=== PATIENT | male | born 1965 | race Two or more races ===

== ENCOUNTER 2019-08-07 20:41 | Emergency (ER) | payer OTHER ==
[~2019-08-07] VITALS: Ht 170.2 cm; Wt 68.0 kg
[2019-08-07 20:52] VITALS: BP 152/87
[2019-08-07] MEDS ORDERED: Tetanus/Diptheria/Pertussis IM ONE (21:00)
--- NOTE | 2019-08-07 21:31 | Emergency Room Report ---
History of Present Illness General Chief Complaint: Multiple Trauma/Fall Source: Patient Present Illness HPI This patient is intoxicated. He has a history of alcohol abuse. His states that he drank a significant amount of hard liquor. He fell and hit his face. There was no loss of consciousness. Patient himself has no specific complaints. He denies chest pain or shortness of breath. He denies cough or congestion. He denies fever chills. He denies neck pain. He has no other complaints. Allergies: Coded Allergies: No Known Allergies (Unverified , 08/07/19) COVID-19 Screening Contact w/high risk pt: No Recent Travel to affected area: No Experienced COVID-19 symptoms?: No Patient History Past Medical History: see triage record, DM Social History: Reports: alcohol use; Denies: smoking, drug use Reviewed Nursing Documentation: PMH: Agreed; PSxH: Agreed Nursing Documentation-PMH Hx Diabetes: Yes Review of Systems All Other Systems: negative except mentioned in HPI Physical Exam Vital Signs Date Time Temp Pulse Resp B/P (MAP) Pulse Ox O2 Delivery O2 Flow Rate FiO2 08/07/19 20:42 98.8 123 18 152/87 (108) 97 Room Air Sp02 EP Interpretation: reviewed, normal General Appearance: no apparent distress, alert, GCS 15, non-toxic, other - intoxicated Head: normocephalic, other - Stellate shaped superficial laceration over the bridge of the nose 1cm. Eyes: bilateral eye normal inspection, bilateral eye PERRL ENT: hearing grossly normal, normal pharynx, no angioedema, normal voice Neck: full range of motion, supple/symm/no masses Respiratory: chest non-tender, lungs clear, normal breath sounds, no respiratory distress, no retraction, no accessory muscle use, speaking full sentences Cardiovascular #1: regular rate, rhythm, no edema Gastrointestinal: normal bowel sounds, non tender, soft, non-distended, no guarding, no rebound Rectal: deferred Musculoskeletal: normal inspection, back normal, normal range of motion, non- tender Neurologic: alert, motor strength/tone normal, oriented x3, sensory intact, responsive, speech normal Psychiatric: memory normal, mood/affect normal, no suicidal/homicidal ideation Skin: no rash, other - See above in ENT exam Procedures Laceration/Wound Repair Laceration/Wound Repair : Consent: Verbal Wound Location: face Wound's Depth, Shape: superficial Wound Length (cm): 1 Wound Repaired With: Dermabond Patient Tolerated: Well Complications: None Medical Decision Making Diagnostic Impression: Primary Impression: Alcohol intoxication Additional Impressions: Closed head injury Facial laceration Nasal bone fracture Hyperglycemia Poorly controlled diabetes mellitus ER Course This patient presents with acute alcoholic intoxication. The patient's laboratory workup was noncontributory other than an elevated EtOH and transaminitis and elevated blood sugar consistent with medication noncompliance. The patient was given IV fluids and oral metformin. The patient did have a facial laceration that was repaired by myself with Dermabond. The patient underwent CT of the head and face which showed only a minimally displaced nasal bone fracture. The patient was allowed to sober up in the emergency department and was able to ambulate and articulate desire to go home. The patient was clinically sober at the time of discharge. No acute emergency medical condition is identified. The patient was educated on the dangers of alcohol intoxication and abuse. The patient was given a list of the local rehabilitation clinics. Laboratory Tests Test 08/07/19 21:25 White Blood Count 8.2 K/UL (4.8-10.8) Red Blood Count 4.12 M/UL (4.70-6.10) L Hemoglobin 12.9 G/DL (14.2-18.0) L Hematocrit 37.9 % (42.0-52.0) L Mean Corpuscular Volume 92 FL (80-99) Mean Corpuscular Hemoglobin 31.4 PG (27.0-31.0) H Mean Corpuscular Hemoglobin Concent 34.1 G/DL (32.0-36.0) Red Cell Distribution Width 11.6 % (11.6-14.8) Platelet Count 246 K/UL (150-450) Mean Platelet Volume 7.9 FL (6.5-10.1) Neutrophils (%) (Auto) 57.9 % (45.0-75.0) Lymphocytes (%) (Auto) 34.9 % (20.0-45.0) Monocytes (%) (Auto) 5.2 % (1.0-10.0) Eosinophils (%) (Auto) 0.8 % (0.0-3.0) Basophils (%) (Auto) 1.1 % (0.0-2.0) Prothrombin Time 9.7 SEC (9.30-11.50) Prothrombin Time INR 0.9 (0.9-1.1) Activated Partial Thromboplast Time 25 SEC (23-33) Sodium Level 132 MMOL/L (136-145) L Potassium Level 3.4 MMOL/L (3.5-5.1) L Chloride Level 91 MMOL/L (98-107) L Carbon Dioxide Level 25 MMOL/L (21-32) Anion Gap 16 mmol/L (5-15) H Blood Urea Nitrogen 17 mg/dL (7-18) Creatinine 1.3 MG/DL (0.55-1.30) Estimated Glomerular Filtration Rate 57.3 mL/min (>60) Glucose Level 486 MG/DL (74-106) H Calcium Level 9.0 MG/DL (8.5-10.1) Total Bilirubin Pending Aspartate Amino Transferase (AST) Pending Alanine Aminotransferase (ALT) Pending Alkaline Phosphatase Pending Total Protein Pending Albumin Pending Globulin Pending Serum Alcohol Pending Last Vital Signs Date Time Temp Pulse Resp B/P (MAP) Pulse Ox O2 Delivery O2 Flow Rate FiO2 08/07/19 20:42 98.8 123 18 152/87 (108) 97 Room Air Disposition: HOME, SELF-CARE Condition: Improved Referrals: ULISES FIGUEROA,REFERRING (PCP) Naina Bunch DO Aug 07, 2019 21:31
[2019-08-07 21:38] LABS: BASOPHILS % (AUTO) 1.1 % (0.0-2.0); EOSINOPHILS % (AUTO) 0.8 % (0.0-3.0); HEMATOCRIT 37.9 % (42.0-52.0); HEMOGLOBIN 12.9 G/DL (14.2-18.0); LYMPHOCYTES % (AUTO) 34.9 % (20.0-45.0); MEAN CORPUSCULAR VOLUME 92 FL (80-99); MONOCYTES % (AUTO) 5.2 % (1.0-10.0); NEUTROPHILS % (AUTO) 57.9 % (45.0-75.0); PLATELET COUNT 246 K/UL (150-450); RED BLOOD COUNT 4.12 M/UL (4.70-6.10); RED CELL DISTRIBUTION WIDTH 11.6 % (11.6-14.8); WHITE BLOOD COUNT 8.2 K/UL (4.8-10.8)
[2019-08-07 21:48] LABS: ANION GAP 16 mmol/L (5-15); BLOOD UREA NITROGEN 17 mg/dL (7-18); CARBON DIOXIDE 25 MMOL/L (21-32); CHLORIDE 91 MMOL/L (98-107); CREATININE 1.3 MG/DL (0.55-1.30); POTASSIUM 3.4 MMOL/L (3.5-5.1); SODIUM 132 MMOL/L (136-145)
--- NOTE | 2019-08-07 21:48 | Diagnostic Imaging Report ---
Exam: CT head without contrast History: Pain, trauma Technique more: Axial noncontrast head CT. CTDI is 2.7 mGy and DLP is 94. 2 mGy-cm. Technique more: One or more of the following dose reduction techniques were used: automated exposure control, adjustment of the mA and/or kV according to patient size, use of iterative reconstruction technique. FINDINGS: No intracranial hemorrhage, abnormal intra- or extra-axial collections or parenchymal lesions are seen. The shape and configuration of the cortical sulci, basal cisterns and ventricles are within normal limits. The ford-white differentiation is preserved. No evidence of mass effect, midline shift, or edema. Fluid in the left nasal passage and trace fluid in the left maxillary sinus. Partially visualized nasal fracture.. IMPRESSION: Normal non-contrast CT scan of the head.
[2019-08-07 21:49] LABS: INR 0.9 (0.9-1.1)
[2019-08-07 21:54] LABS: ALANINE AMINOTRANSFERASE 20 U/L (12-78); ALBUMIN 3.9 G/DL (3.4-5.0); ALKALINE PHOSPHATASE 83 U/L (46-116); ASPARTATE AMINO TRANSFERASE 15 U/L (15-37); BILIRUBIN,TOTAL 0.3 MG/DL (0.2-1.0)
--- NOTE | 2019-08-07 21:55 | Diagnostic Imaging Report ---
CT facial bone History: Pain, trauma Technique more: Axial noncontrast CT of the facial bones with coronal, sagittal reformatted images. CTDI is 2.7 mGy and DLP is 94.2 mGy-cm. Technique more: One or more of the following dose reduction techniques were used: automated exposure control, adjustment of the mA and/or kV according to patient size, use of iterative reconstruction technique. Findings:. Old left medial orbital wall fracture. Orbits are otherwise intact. Mild mucosal thickening in the ethmoid air cells. Nondisplaced anterior nasal bone fracture. Superior nasal bone fracture with minimal displacement. Nasal septum is midline. Fluid is seen in the left nasal passage. 2 cm mucous retention cyst in the left maxillary sinus. Zygomatic arch, bilateral zygoma, mastoid air cells are clear. Mandible is intact. Impression: 1. Nondisplaced nasal bone and superior nasal septum fracture.
[2019-08-07] MEDS ORDERED: metFORMIN 500mg tab ORAL ONE (22:00)
[2019-08-07] MEDS ORDERED: Insulin Human Regular 100units/ml 3ml IV ONE (22:15)
[2019-08-07 22:50] VITALS: BP 142/80
[2019-08-07 23:20] VITALS: BP 142/80
== END 2019-08-07 23:20 | disposition home or self-care (01) ==
LOC: EDBD 20:41 → EMR 21:04
DX: F10.129 Alcohol abuse with intoxication, unspecified (principal); S09.90XA Unspecified injury of head, initial encounter; S01.21XA Laceration without foreign body of nose, initial encounter; S02.2XXA Fracture of nasal bones, initial encounter for closed fracture; E11.65 Type 2 diabetes mellitus with hyperglycemia; W19.XXXA Unspecified fall, initial encounter; Y92.9 Unspecified place or not applicable
CPT/HCPCS: 12011; 36415; 70450; 70486; 80053; 85025; 85610; 85730; 90471; 90715; 96361; 96374; G0480; J1815; J7030; Z7502; 99284